=== PATIENT | female | born 1950 | race Asian ===

== ENCOUNTER 2025-01-05 15:38 | Emergency (ER) | payer MEDICARE, BC, SELFPAY ==
[2025-01-05 15:47] VITALS: BP 131/77; PULSE 76; RESP 20; TEMP 37.3; O2SAT 96
[2025-01-05 16:29] LABS: Collection Type, Urine Clean Catch
[2025-01-05 16:49] LABS: Bacteria,Urine Rare; Bilirubin,Urine Negative (Negative); Blood,Urine Negative (Negative); Clarity,Urine Clear (Clear/Hazy); Color,Urine Colorless (Lt Yel-Yel); Culture Indicated,Urine Not Indicated; Glucose, Urine Negative (Negative); Ketones,Urine Negative (Negative); Leukocyte Esterase,Urine Negative (Negative); Nitrite,Urine Negative (Negative); Protein,Urine Negative (Neg - Trace); RBC,Urine < 1 /hpf (0-3); Specific Gravity,Urine 1.009 (1.001-1.035); Squamous Epithelial Cell,Urine 1 /hpf (0-5); Urobilinogen,Urine Negative mg/dL (0.0-1.0); WBC,Urine < 1 /hpf (0-5)
--- NOTE | 2025-01-05 16:57 | XR_ITS ---
Examination: CT abdomen and pelvis without contrast. Coronal 3-D reconstructions. Sagittal 2-D reconstructions. Date and time of exam:January 05, 2025, 1715 hours INDICATIONS: Right-sided flank pain onset today CTDI: vol (mGy): 6.95 DLP: (mGycm): 364 Technique: Axial images of the abdomen have been obtained, 3 mm slice thickness Intravenous contrast material has not been administered. Low dose protocols were performed. One or more of the following dose reduction techniques were used; automated exposure control, adjustment of the mA and/or KV according to patient size, use of iterative reconstruction technique. Findings: Mild enlargement cardiac contour No focal liver or splenic lesions No gallstones Small pancreatic calcifications No adrenal mass 4 cm upper pole right renal calculus. Mild bilateral renal parenchymal scar formation No renal or ureteral calculi, no hydronephrosis Abdominal aortic calcification noted aneurysmal dilatation No pericecal inflammatory changes No bowel obstruction Scattered colonic diverticulosis Contracted urinary bladder Moderate osteopenia IMPRESSION: No renal or ureteral calculi, no hydronephrosis No CT findings of appendicitis bowel obstruction or diverticulitis No bladder mass or bladder calculi
--- NOTE | 2025-01-05 17:32 | PD.EDRME ---
Rapid Medical Screening Exam RME Arrival date/time: 01/05/25 15:38 74-year-old female presents to the emergency department today complains of dysuria and back pain Chief Complaint: General Adult/Misc Complain Time Seen by Provider: 01/05/25 16:00 Vital signs: Vital Signs Temperature 99.1 F 01/05/25 15:47 Pulse Rate 76 01/05/25 15:47 Respiratory Rate 20 01/05/25 15:47 Blood Pressure 131/77 H 01/05/25 15:47 Pulse Oximetry (%) 96 01/05/25 15:47 Oxygen Delivery Method Room Air 01/05/25 15:47
[2025-01-05 17:59] LABS: Basophils % (Auto) 0 % (0-2.5); Eosinophils # (Auto) 0.3 Thou/mm3 (0.0-0.5); Eosinophils % (Auto) 3 % (0-10); Hemoglobin 13.1 g/dL (12.0-16.0); Immature Granulocytes % (Auto) 0 % (0-0); Immature Granulocytes Auto 0.03 Thou/mm3 (0.00-0.00); Lymphocytes % (Auto) 19 % (10-50); Mean Corpuscular HGB Conc 34.5 g/dl (31.0-37.0); Mean Corpuscular Hemoglobin 30.3 pg (25.0-35.0); Mean Corpuscular Volume 88 fL (80-100); Monocytes # (Auto) 1.1 Thou/mm3 (0.0-0.8); Monocytes % (Auto) 10 % (0-12); Neutrophils # (Auto) 7.1 Thou/mm3 (1.8-7.7); Neutrophils % (Auto) 67 % (37-80); Nucleated Red Blood Cell % 0 /100 WBC (0); Platelet Count 280 Thou/mm3 (140-440); RDW Standard Deviation 41.4 fL (36.4-46.3); Red Blood Count 4.33 Miln/mm3 (4.00-5.20); White Blood Count 10.5 Thou/mm3 (3.6-11.0)
[2025-01-05 18:26] LABS: Alanine Aminotransferase 26 U/L (10-49); Albumin, Serum 4.3 gm/dL (3.4-4.8); Albumin/Globulin Ratio 1.5 (1.2-2.2); Alkaline Phosphatase 114 U/L (46-116); Anion Gap 9 (7-16); Aspartate Amino Transferase 29 U/L (0-34); BUN/Creatinine Ratio 14 Ratio (12-20); Bilirubin,Total 0.4 mg/dL (0.3-1.2); Blood Urea Nitrogen 15 mg/dL (9-23); Calcium 8.7 mg/dL (8.3-10.6); Calcium (Corrected) 8.7 mg/dL (8.5-10.1); Carbon Dioxide 28.2 mMol/L (20.0-31.0); Chloride 107 mMol/L (98-107); Creatinine (Component) 1.1 mg/dL (0.6-1.3); Estimated Creatinine Clearance 41.4 mL/min (>60); Globulin 2.8 gm/dL (2.3-3.5); Glucose 111 mg/dL (74-106); Lipase 41 U/L (12-53); Osmolality,Calculated 288 (275-295); Potassium 3.7 mMol/L (3.4-5.1); Sodium 144 mMol/L (136-145); Total Protein 7.1 gm/dL (5.7-8.2); eGFR 53 See Note
[2025-01-05 19:32] VITALS: BP 158/82; PULSE 70; RESP 18; TEMP 36.8; O2SAT 96
--- NOTE | 2025-01-05 20:06 | EDNOTE_ITS ---
ED Back Injury Pain RME/HPI General Chief Complaint: General Adult/Misc Complain Stated Complaint: LOW BACK PAIN, FREQUENCY W/ URINATION X 3 DAYS Time Seen by Provider: 01/05/25 16:00 Arrival date/time: 01/05/25 15:38 RME / HPI RME / HPI Narrative: 01/05/25 15:38 74-year-old female presents to the emergency department today complains of dysuria and back pain Dr. Thomson?s Main ED Evaluation: 74 y/o female presents to ED c/o lower back pain with frequent urination x 4 days. No radiation or migration. Patient has tried Motrin 600 mg at 0800, Lidocaine patches, and Flexiril with little to no relief. Patient is requesting a Toradol injection for pain management. Patient denies any fever, chills, dysuria, hematuria, N/V, abdominal pain or any other associated symptoms. Related Data Home Medications ?Medication ?Instructions ?Recorded ?Confirmed Aspirin Ec * (ECOTRIN *) 81 mg PO QDAY HEART ##0 11/01 09/17 amlodipine 5 mg tablet (Norvasc) 5 mg PO QDAY HBP #0 t abs 11/11/14 atorvastatin 20 mg tablet (Lipitor) 20 mg PO HS CHOLES TROL #0 tabs 11/11/14 montelukast 10 mg tablet 10 mg PO HS #0 tabs 11/11/14 (Singulair) omeprazole 20 mg capsule,delayed 20 mg PO QDAY ACID ## 0 11/11/14 release (Prilosec) zolpidem 10 mg tablet (Ambien) 10 mg PO HS SLEEP #0 ta bs 11/11/14 Previous Rx's ?Medication ?Instructions ?Recorded ibuprofen 600 mg tablet 600 mg PO Q6HR PRN PAIN #30 tabs 11/11/14 esomeprazole magnesium 40 mg 40 mg PO QDAY #30 caps capsule,delayed release (Nexium) Allergies Allergy/AdvReac Type Severity Reaction Status Date / Time codeine Allergy Unknown Verified 01/05/25 15:41 diphenhydramine Allergy Unknown Verified 01/05/25 15:41 hydrocodone Allergy Unknown Verified 01/05/25 15:41 Review of Systems Review of Systems Systems Reviewed: All systems reviewed, normal except as documented Past Medical History Past Medical History CARDIAC: Positive Cardiac Disorders, Hypercholesterolemia and Hypertension Family History FAMILY HISTORY: Positive Family Cardiac Disorders Surgical History SURGICAL: Positive Abdominal Surgery (Appendectomy) and Hysterectomy ED Exam Narrative Physical exam: GENERAL APPEARANCE: alert and oriented x 4, well-developed, well-nourished, no acute distress VITALS: All vitals were reviewed and the pulse ox is 96% on room air, which is normal according to my interpretation. HEENT: Normocephalic, atraumatic; pupils equal, round, reactive to light; EOMI; mucous membranes pink, moist; oropharynx clear NECK: Supple LUNGS: CTABL; no wheezes, no rales, no rhonchi HEART: Regular rate, regular rhythm; normal S1, S2; no murmurs ABDOMEN: non distended; normal BS; soft, no tenderness, no guarding, no rebound; no masses, no organomegaly, no hernia BACK: Mild TTP to lower back EXTREMITIES: atraumatic; no edema NEUROLOGIC: awake; alert and oriented x4; cranial nerves II-XII grossly intact; no focal sensory or motor deficits PSYCHIATRIC: appropriate mood and affect SKIN: warm, dry, normal color; no rashes Course Quality Measures none Orders Category Date Time Status CT abdomen pelvis wo con Stat Exams 01/05/25 16:57 Completed CBC Stat Lab 01/05/25 17:40 Completed Comprehensive Metabolic Panel Stat Lab 01/05/25 17:40 Completed Lipase Stat Lab 01/05/25 17:40 Completed UA, C/S IF [Urinalysis, C/S if Indicated] Stat Lab 01/05/25 16:21 Completed Ketorolac Inj [Toradol Inj] Med 01/05/25 20:06 Discontinued 30 mg IM X1 ONE Vital Signs Vital signs: Vital Signs Temperature 99.1 F 01/05/25 15:47 Pulse Rate 76 01/05/25 15:47 Respiratory Rate 20 01/05/25 15:47 Blood Pressure 131/77 H 01/05/25 15:47 Pulse Oximetry (%) 96 01/05/25 15:47 Oxygen Delivery Method Room Air 01/05/25 15:47 Back Pain / Injury MDM Narrative MDM Narrative:: Scribe Attestation: IPriti, ayden scribing for and in the presence of Dr. Thomson. Provider Notation: Although this document has been carefully reviewed, there may still be some phonetic and other typographical errors.? These errors are purely grammatical due to imperfections in the software program and should not be construed in any way to? compromise the substance of the patient's medical care during this visit. Patient data External records reviewed:: [facility] previous records (No recent ED records available for review.) Clinical information provided by:: patient Social determinants that could affect healthcare access:: none Patient has the following chronic illnesses:: Hypercholesterolemia and Hypertension How is presenting disease/condition affected by chronic disease/condition?: uneffected by Evaluation data The following diagnostics were reviewed and interpreted by me:: lab results and radiology exam(s) Lab and/or radiology exams considered but not ordered:: None. Interpretation Summary: LABS: Bloodwork and UA are unremarkable, per my interpretation. RADIOLOGY Abdomen/Pelvis CT: Patient: YOAN HARE. Record#: [id number] Birthdate: 1950 Age/Sex: 74 / F Location: [facility] Attending Dr: Ordering Physician: Jm DELCID)Harrison NP Date of Service: 01/05/25 Procedure(s): CT abdomen pelvis wo con Accession Number(s): [id number] cc: Jm DELCID)Harrison NP; Yg Sheikh MD; Joyce Townsend MD~ Examination: CT abdomen and pelvis without contrast. Coronal 3-D reconstructions. Sagittal 2-D reconstructions. Date and time of exam:January 05, 2025, 1715 hours INDICATIONS: Right-sided flank pain onset today CTDI: vol (mGy): 6.95 DLP: (mGycm): 364 Technique: Axial images of the abdomen have been obtained, 3 mm slice thickness Intravenous contrast material has not been administered. Low dose protocols were performed. One or more of the following dose reduction techniques were used; automated exposure control, adjustment of the mA and/or KV according to patient size, use of iterative reconstruction technique. Findings: Mild enlargement cardiac contour No focal liver or splenic lesions No gallstones Small pancreatic calcifications No adrenal mass 4 cm upper pole right renal calculus. Mild bilateral renal parenchymal scar formation No renal or ureteral calculi, no hydronephrosis Abdominal aortic calcification noted aneurysmal dilatation No pericecal inflammatory changes No bowel obstruction Scattered colonic diverticulosis Contracted urinary bladder Moderate osteopenia IMPRESSION: No renal or ureteral calculi, no hydronephrosis No CT findings of appendicitis bowel obstruction or diverticulitis No bladder mass or bladder calculi Dictated By: Yg Sheikh MD Signed By: <Electronically signed by Yg Sheikh MD in OV> 01/05/25 3519 Medications / Prescriptions Medications or Prescriptions considered but not ordered:: None. Medication administrations:: Medication Administration History Discontinued Medications Ketorolac Tromethamine (Ketorolac Inj 60 Mg/2 Ml Vial) 30 mg IM X1 ONE Stop: 01/05/25 20:07 Last Admin: 01/05/25 20:23 Dose: 30 mg Documented By: KF See above if any. Consultations Consultation(s) initiated? (list below): No Diagnosis Differential diagnosis back pain/injury: sciatica and other (UTI, pyelon ephritis, cystitis, muscle strain) Most likely diagnosis given after review of the tests above:: See clinical impression below. Admission Indicated Admission indicated?: not indicated Explain why admission is indicated or not indicated:: Patient has no emergent abnormalities in their studies and can be managed on an outpatient basis. Admission Request Was there a request for admission?: No Disposition Plan Disposition Plan: Discharge Discharge Attestation Discharge Attestation: The patient and all family members were given an opportunity to ask questions and understood the discharge instructions. Discharge instructions specifically effects, indications for sooner follow up or return to the emergency department, and the expected course of current diagnosis. Patient condition: Stable Discharge Plan Plan Patient Disposition: HOME (Self Care) Discharge Disposition comment: Stable for discharge home Patient condition on transfer: Stable Prescriptions/Referrals Prescriptions/Med Rec: No Action amlodipine [Norvasc] 5 MG tablet 5 mg PO QDAY Qty: 0 omeprazole [Prilosec] 20 MG capsule,delayed release(DR/EC) 20 mg PO QDAY Qty: 0 Patient Comments: TO SUPPRESS GASTRIC ACID SECRETIONS Aspirin Ec * (ECOTRIN *) 81 MG TABLET.DR 81 mg PO QDAY Qty: 0 atorvastatin [Lipitor] 20 MG tablet 20 mg PO HS Qty: 0 montelukast [Singulair] 10 MG tablet 10 mg PO HS Qty: 0 zolpidem [Ambien] 10 MG tablet 10 mg PO HS Qty: 0 ibuprofen 600 MG tablet 600 mg PO Q6HR PRN (Reason: PAIN) Qty: 30 0RF esomeprazole magnesium [Nexium] 40 mg capsule,delayed release(DR/EC) 40 mg PO QDAY Qty: 30 0RF Referrals: Geovanna Escalera MD [Primary Care Provider] - In 1 week Problem List Clinical Impression: Lower back pain Patient/Caregiver Discharge Instructions Discharge Activity: activity as tolerated Education Materials: Back Safety: Bending, Back Safety: Lifting, Back Safety: Sitting Additional Instructions: Please return to the emergency department if you have any worsening or any further medical problems and we will help you. Otherwise you should follow-up with your primary care doctor within the next several days. Today your CT scan showed no abnormalities. Your blood work is very reassuring and within normal limits. Print Language: Pakistani Stand Alone Forms: [employer] Award Info., Patient Portal Info Letter
[2025-01-05] MEDS: KETOROLAC INJ 60 MG/2 ML VIAL 30 MG IM (20:23)
== END 2025-01-05 20:53 | disposition home or self-care (01) ==
PROVIDERS: Nurse Practitioner Primary Care; Emergency Provider Emergency Medicine; PCP Internal Medicine
DX: M54.50 Low back pain, unspecified (principal); R10.9 Unspecified abdominal pain; R35.0 Frequency of micturition
CPT/HCPCS: 36415; 74176; 80053; 81001; 83690; 85025; 96372; 99284; J1885

== ENCOUNTER → 2025-01-27 | Outpatient (CLI) | payer MEDICARE, BC, SELFPAY ==
[2025-01-27 09:36] LABS: Basophils # (Auto) 0.1 Thou/mm3 (0.0-0.2); Basophils % (Auto) 1 % (0-2.5); Eosinophils # (Auto) 0.3 Thou/mm3 (0.0-0.5); Eosinophils % (Auto) 4 % (0-10); Hematocrit 42.6 % (36.0-46.0); Hemoglobin 14.4 g/dL (12.0-16.0); Immature Granulocytes % (Auto) 0 % (0-0); Immature Granulocytes Auto 0.02 Thou/mm3 (0.00-0.00); Lymphocytes # (Auto) 1.9 Thou/mm3 (1.0-4.8); Lymphocytes % (Auto) 24 % (10-50); Mean Corpuscular HGB Conc 33.8 g/dl (31.0-37.0); Mean Corpuscular Volume 89 fL (80-100); Monocytes # (Auto) 0.7 Thou/mm3 (0.0-0.8); Monocytes % (Auto) 9 % (0-12); Neutrophils # (Auto) 4.9 Thou/mm3 (1.8-7.7); Neutrophils % (Auto) 62 % (37-80); Nucleated Red Blood Cell % 0 /100 WBC (0); Platelet Count 296 Thou/mm3 (140-440); RDW Standard Deviation 40.3 fL (36.4-46.3)
[2025-01-27 10:19] LABS: Alanine Aminotransferase 20 U/L (10-49); Albumin, Serum 4.4 gm/dL (3.4-4.8); Alkaline Phosphatase 103 U/L (46-116); Anion Gap 9 (7-16); Aspartate Amino Transferase 23 U/L (0-34); BUN/Creatinine Ratio 14 Ratio (12-20); Bilirubin,Direct 0.2 mg/dL (0.0-0.3); Bilirubin,Total 0.6 mg/dL (0.3-1.2); Blood Urea Nitrogen 13 mg/dL (9-23); Calcium 9.2 mg/dL (8.3-10.6); Carbon Dioxide 31.1 mMol/L (20.0-31.0); Cardiac Risk Estimate 3.4 RATIO (3.7-5.6); Chloride 103 mMol/L (98-107); Cholesterol 161 mg/dL (132-200); Creatinine (Component) 0.9 mg/dL (0.6-1.3); Free T4 (Free Thyroxine) 1.35 ng/dL (0.89-1.76); Glucose 103 mg/dL (74-106); HDL Cholesterol 48 mg/dL (40-60); LDL Cholesterol,Calculated 62 mg/dL (0-130); Osmolality,Calculated 285 (275-295); Potassium 3.2 mMol/L (3.4-5.1); Sodium 143 mMol/L (136-145); Thyroid Stimulating Hormone 2.83 uIU/mL (0.55-4.78); Triglycerides 256 mg/dL (30-150); eGFR > 60 See Note
== END | disposition home or self-care (01) ==
LOC: COPL 08:41
PROVIDERS: PCP Internal Medicine; Referring Provider Internal Medicine Cardiovascular Disease; Visit Provider Internal Medicine Cardiovascular Disease
DX: I11.0 Hypertensive heart disease with heart failure (principal); I50.9 Heart failure, unspecified; E78.5 Hyperlipidemia, unspecified; I20.9 Angina pectoris, unspecified
CPT/HCPCS: 36415; 80048; 80061; 80076; 83880; 84439; 84443; 85025

== ENCOUNTER → 2025-04-29 | Outpatient (CLI) | payer MEDICARE, BC, SELFPAY ==
--- NOTE | 2025-04-29 09:30 | XR_ITS ---
Examination: Screening digital mammography, bilateral Computer aided detection 3-D breast Tomosynthesis, bilateral Date and time of exam: 04/29/2025, 9:35 AM Comparisons: February 2010 through February 2023 Indications: Screening Technique: Nonmagnified MLO, CC views of the breasts to been obtained, reconstructed from 3-D Tomosynthesis images. R2 computer aided detection program utilized for evaluation of suspicious masses and/or abnormal calcifications. 3-D Tomosynthesis images obtained. Technologist: Findings: There are scattered areas of fibroglandular density. No evidence of abnormal masses or suspicious calcifications. Impression: BI-RADS category 1: Negative findings (within normal) Recommend 1 year follow-up mammogram
== END | disposition home or self-care (01) ==
PROVIDERS: PCP Internal Medicine; Referring Provider Internal Medicine; Visit Provider Internal Medicine
DX: Z12.31 Encounter for screening mammogram for malignant neoplasm of breast (principal); R92.313 Mammographic fatty tissue density, bilateral breasts
CPT/HCPCS: 77063; 77067